=== PATIENT | male | born 1945 | race Hispanic/Latino ===

== ENCOUNTER 2022-06-09 07:19 | Day surgery (SDC) | payer OTHER ==
[2022-06-04 14:26] LABS: BASOPHILS % (AUTO) 0.3 % (0.0-5.0); EOSINOPHILS % (AUTO) 2.1 % (0.0-8.0); HEMATOCRIT 31.6 % (42-54); LYMPHOCYTES % (AUTO) 18.4 % (21.0-51.0); MEAN CORPUSCULAR HEMOGLOBIN 30.6 pg (27.0-33.0); MEAN CORPUSCULAR HGB CONC 34.2 g/dL (32.0-36.0); MEAN CORPUSCULAR VOLUME 89.5 fL (79-99); MONOCYTES % (AUTO) 10.4 % (3.0-13.0); NEUTROPHILS % (AUTO) 68.5 % (40.0-77.0); PLATELET COUNT (AUTO) 138 K/uL (130-400); RED BLOOD CELL COUNT(AUTO) 3.53 MIL/uL (4.50-6.20); RED CELL DISTRIBUTION WIDTH 13.2 % (11.0-15.5); WHITE BLOOD COUNT (AUTO) 7.7 K/uL (4.8-10.8)
[2022-06-04 14:35] LABS: CREATININE 1.7 mg/dL (0.5-1.5); POTASSIUM 4.9 mmol/L (3.5-5.1)
[2022-06-04 14:38] LABS: PROTHROMBIN TIME 10.9 SEC (9.6-11.6)
[2022-06-04 14:40] LABS: PARTIAL THROMBOPLASTIN TIME 29.6 SEC (26.3-35.5)
[2022-06-08 12:33] VITALS: BP 149/43
[~2022-06-09] VITALS: Ht 167.6 cm; Wt 89.6 kg
[2022-06-09] VITALS (8 sets, daily range): BP systolic 90–127; BP diastolic 40–72
[~2022-06-09 07:19] MED LIST: ASPI-1197 PO; CLOP75TA32 PO; FERR-72 PO; ISOS30TA92 PO; LOSA25TA41 PO; METF750T46 PO; METO-408 PO; ROSU40TA21 PO; TAMS0.4C32 PO; TORS10TA18 PO
[2022-06-09] MEDS ORDERED: 0.9%NACL 1000ML 1,000 ML IV ONE (07:54)
[2022-06-09] MEDS ORDERED: CEFAZOLIN SODIUM 1 GM VIAL IVP ONE (08:00)
[2022-06-09] MEDS ORDERED: LIDOCAINE HCL-MPF 2% 10ML AMP IJ ONE (09:34)
[2022-06-09] MEDS ORDERED: BUPIVACAINE/PF 0.25% 30ML VIAL IJ ONE (09:34)
[2022-06-09] MEDS ORDERED: MEPERIDINE-PF 25 MG/ML SYG ONE ×3 (09:37→10:35)
[2022-06-09] MEDS ORDERED: MIDAZOLAM HCL 1 MG/ML 2ML VIAL ONE ×3 (09:38→10:36)
[2022-06-09] MEDS ORDERED: IODIXANOL 320 MG/ML 100 ML VIAL ONE (09:40)
[2022-06-09] MEDS ORDERED: BACITRACIN 1 EACH PACKET TP ONE (11:34)
[2022-06-09] MEDS ORDERED: TRAM50TA4 PO (12:15)
[2022-06-09] MEDS ORDERED: ACETAMINOPHEN WITH CODEINE 1 TAB TAB PO PRN (12:30)
== END 2022-06-09 15:58 | disposition home or self-care (01) ==
LOC: DAH 07:19
PROVIDERS: ATTEND Internal Medicine Cardiovascular Disease
DX: I25.5 Ischemic cardiomyopathy (principal); I44.2 Atrioventricular block, complete; I44.7 Left bundle-branch block, unspecified; E11.22 Type 2 diabetes mellitus with diabetic chronic kidney disease; N18.9 Chronic kidney disease, unspecified; I50.42 Chronic combined systolic (congestive) and diastolic (congestive) heart failure; E11.42 Type 2 diabetes mellitus with diabetic polyneuropathy; I25.2 Old myocardial infarction; E78.5 Hyperlipidemia, unspecified; Z87.891 Personal history of nicotine dependence; Z95.0 Presence of cardiac pacemaker; Z79.899 Other long term (current) drug therapy; Z79.01 Long term (current) use of anticoagulants
CPT/HCPCS: 80048; 85025; 85610; 85730; 36415; 93005; 33249; 33225; 33233; 82948 ×2; 71045; C1769; C1882; C1900; C1895; J0690; J7030 ×2; J3490 ×2; J2250 ×3; J2175 ×3; Q9967; A4215; A4222; A4221; A4663; A4216; A4606; A4223 ×3; 99156; 99157

== ENCOUNTER → 2024-07-18 | Outpatient (CLI) | payer OTHER ==
[~2024-07-18] MED LIST changes: -ROSU40TA21 PO; +ROSU40TA88 PO; +TRAM50TA4 PO
[2024-07-18 13:13] LABS: CREATININE 2.1 mg/dL (0.5-1.3); POTASSIUM 4.7 mmol/L (3.5-5.1)
== END | disposition home or self-care (01) ==
LOC: RAH 11:55
PROVIDERS: ATTEND Internal Medicine Cardiovascular Disease
DX: I50.22 Chronic systolic (congestive) heart failure (principal); M47.815 Spondylosis without myelopathy or radiculopathy, thoracolumbar region; Z95.0 Presence of cardiac pacemaker
CPT/HCPCS: 36415; 71046; 80048; 83880